=== PATIENT | male | born 2000 | race Caucasian/White ===

== ENCOUNTER 2022-11-15 23:10 | Emergency (ER) | payer BC, OTHER ==
[~2022-11-15] VITALS: Ht 195.6 cm; Wt 110.5 kg
[2022-11-15] MEDS ORDERED: HALOPERIDOL 5MG/ML 1ML VIAL As Ordered ONE (23:27)
[2022-11-15] MEDS ORDERED: diphenhydrAMINE 50MG/ML VIAL As Ordered ONE (23:27)
[2022-11-15] MEDS ORDERED: LORazepam 2 MG/ML 1ML VIAL As Ordered ONE (23:28)
[2022-11-15] MEDS ORDERED: HALOPERIDOL 5MG/ML 1ML VIAL IM STA (23:34)
[2022-11-15] MEDS ORDERED: diphenhydrAMINE 50MG/ML VIAL IM STA (23:34)
[2022-11-15] MEDS ORDERED: LORazepam 2 MG/ML 1ML VIAL IM STA (23:34)
[2022-11-16 00:40] LABS: HEMATOCRIT 41.4 % (42.0-52.0); HEMOGLOBIN 14.2 g/dl (13.5-17.5); MEAN CORPUSCULAR HEMOGLOBIN 30.5 pg (27.0-33.0); MEAN CORPUSCULAR HGB CONC 34.3 g/dl (32.0-36.5); PLATELET COUNT, AUTOMATED 230 10^3/uL (150-450); RED BLOOD COUNT 4.65 10^6/uL (4.30-6.10); WHITE BLOOD COUNT 7.7 10^3/uL (4.0-10.0)
[2022-11-16 01:08] LABS: ETHYL ALCOHOL (ETHANOL) 0.006 % (0.000-0.010)
[2022-11-16 01:09] LABS: ACETAMINOPHEN LEVEL < 2.0 UG/ML (10.0-20.0)
[2022-11-16 01:10] LABS: SALICYLATE LEVEL < 3.0 MG/DL (<30)
[2022-11-16 01:12] LABS: THYROID STIMULATING HORMONE 1.483 uIU/ML (0.55-4.78)
[2022-11-16 01:13] LABS: ALBUMIN 4.4 G/DL (3.2-5.2); ALKALINE PHOSPHATASE 87 U/L (46-116); ALT/SGPT 15 U/L (7.0-40); AST/SGOT 16 U/L (<34); BILIRUBIN,DIRECT 0.1 MG/DL (<0.4); BILIRUBIN,TOTAL 0.4 MG/DL (0.3-1.2); BLOOD UREA NITROGEN 12 MG/DL (9-23); CALCIUM LEVEL 9.2 MG/DL (8.5-10.1); CARBON DIOXIDE LEVEL 27 MMOL/L (20-31); CHLORIDE LEVEL 107 MMOL/L (98-107); CREATININE FOR GFR 0.96 MG/DL (0.70-1.30); GLOMERULAR FILTRATION RATE > 60.0 (>60); GLUCOSE, FASTING 100 MG/DL (60-100); POTASSIUM SERUM 3.6 MMOL/L (3.5-5.1); SODIUM LEVEL 144 MMOL/L (136-145)
[2022-11-16] MEDS ORDERED: MED REC CURRENTLY UNOBTAINABLE XX SCH (05:45)
[2022-11-16 08:45] VITALS: TEMP 96.4
[2022-11-16] MEDS ORDERED: QUEtiapine FUMARATE 50MG TAB PO SCH (09:00)
[2022-11-16] MEDS ORDERED: MED REC IN PROGRESS XX SCH (09:40)
[2022-11-16] MEDS ORDERED: TRAZ-257 PO (09:45)
[2022-11-16] MEDS ORDERED: HYDR-3363 PO (09:45)
[2022-11-16] MEDS ORDERED: QUET50TA4 PO ×2 (09:45)
[2022-11-16] MEDS ORDERED: ZOLO100T PO (09:45)
[2022-11-16] MEDS ORDERED: HOME MED LIST COMPLETE! XX SCH (09:50)
[2022-11-16 10:29] LABS: AMPHETAMINES LEVEL URINE NEGATIVE (NEGATIVE); BARBITURATES URINE NEGATIVE (NEGATIVE); BENZODIAZEPINES URINE NEGATIVE (NEGATIVE); COCAINE METABOLITE URINE NEGATIVE (NEGATIVE); METHADONE URINE NEGATIVE (NEGATIVE); OPIATES URINE NEGATIVE (NEGATIVE); PHENCYCLIDINE URINE NEGATIVE (NEGATIVE)
[2022-11-16 10:32] LABS: CANNABINOIDS URINE POSITIVE (NEGATIVE)
[2022-11-16] MEDS ORDERED: QUEtiapine FUMARATE 50MG TAB PO PRN (10:35)
[2022-11-16 11:34] VITALS: BP 139/69; O2SAT 100
[2022-11-16] MEDS ORDERED: traZODone 100 MG TAB PO SCH (21:00)
[2022-11-16] MEDS ORDERED: SERTRALINE 100 MG TAB PO SCH (21:00)
== END 2022-11-16 11:53 | disposition home or self-care (01) ==
LOC: M ED 23:10
DX: F43.22 Adjustment disorder with anxiety (principal); F32.A Depression, unspecified; Z79.899 Other long term (current) drug therapy
CPT/HCPCS: 80048; 80076; 80143; 80307; 82077; 84443; 85027; 87635; 96372; 99284; J1200; J1630; J2060

== ENCOUNTER 2023-05-04 13:08 | Inpatient (IN) | payer OTHER ==
[~2023-05-04] VITALS: Ht 195.6 cm; Wt 129.6 kg
[~2023-05-04 13:08] MED LIST: HYDR-3363 PO; QUET50TA4 PO; TRAZ-257 PO; ZOLO100T PO
[2023-05-04] MEDS ORDERED: LORazepam 2 MG TAB PO STA (13:39)
[2023-05-04] MEDS ORDERED: OLANZapine ORAL DISINTEGRATING TAB 5MG PO ONE (13:40)
[2023-05-04 14:15] LABS: HEMATOCRIT 43.3 % (42.0-52.0); HEMOGLOBIN 14.7 g/dl (13.5-17.5); MEAN CORPUSCULAR HEMOGLOBIN 30.2 pg (27.0-33.0); MEAN CORPUSCULAR HGB CONC 33.9 g/dl (32.0-36.5); MEAN CORPUSCULAR VOLUME 88.9 fl (80.0-96.0); PLATELET COUNT, AUTOMATED 261 10^3/uL (150-450); RED BLOOD COUNT 4.87 10^6/uL (4.30-6.10); WHITE BLOOD COUNT 7.2 10^3/uL (4.0-10.0)
[2023-05-04 14:37] LABS: ETHYL ALCOHOL (ETHANOL) 0.007 % (0.000-0.010)
[2023-05-04 14:39] LABS: ALBUMIN 4.4 G/DL (3.2-5.2); ALKALINE PHOSPHATASE 66 U/L (46-116); ALT/SGPT 22 U/L (7.0-40); AST/SGOT 23 U/L (<34); BILIRUBIN,DIRECT 0.2 MG/DL (<0.4); BILIRUBIN,TOTAL 0.5 MG/DL (0.3-1.2); BLOOD UREA NITROGEN 11 MG/DL (9-23); CALCIUM LEVEL 9.4 MG/DL (8.5-10.1); CARBON DIOXIDE LEVEL 25 MMOL/L (20-31); CHLORIDE LEVEL 109 MMOL/L (98-107); GLOMERULAR FILTRATION RATE > 60.0 (>60); GLUCOSE, FASTING 87 MG/DL (60-100); POTASSIUM SERUM 4.3 MMOL/L (3.5-5.1); SALICYLATE LEVEL < 3.0 MG/DL (<30); SODIUM LEVEL 138 MMOL/L (136-145); TOTAL PROTEIN 7.5 G/DL (5.7-8.2)
[2023-05-04 14:41] LABS: THYROID STIMULATING HORMONE 0.693 uIU/ML (0.55-4.78)
[2023-05-04] MEDS ORDERED: QUEtiapine FUMARATE 50MG TAB PO PRN ×2 (15:20→15:55)
[2023-05-04 15:50] LABS: PHENCYCLIDINE URINE NEGATIVE (NEGATIVE)
[2023-05-04 15:51] LABS: AMPHETAMINES LEVEL URINE NEGATIVE (NEGATIVE); BARBITURATES URINE NEGATIVE (NEGATIVE); BENZODIAZEPINES URINE NEGATIVE (NEGATIVE); COCAINE METABOLITE URINE NEGATIVE (NEGATIVE); METHADONE URINE NEGATIVE (NEGATIVE); OPIATES URINE NEGATIVE (NEGATIVE)
[2023-05-04 15:52] LABS: CANNABINOIDS URINE POSITIVE (NEGATIVE)
[2023-05-04] MEDS ORDERED: OLANZapine ORAL DISINTEGRATING TAB 5MG PO PRN (15:55)
[2023-05-04] MEDS ORDERED: diphenhydrAMINE 25MG CAP PO PRN (15:55)
[2023-05-04] MEDS ORDERED: ACETAMINOPHEN TAB 650MG DOSE (2X325MG) PO PRN (15:55)
[2023-05-04] MEDS ORDERED: IBUPROFEN 400MG TAB PO PRN (15:55)
[2023-05-04] MEDS ORDERED: LORazepam 1 MG TAB PO PRN (15:55)
[2023-05-04] MEDS ORDERED: NICOTINE 21MG/24HR 1 EA TRANSDERMAL TD PRN (15:55)
[2023-05-04] MEDS ORDERED: MOM 30ML SUSPENSION UDC PO PRN (15:55)
[2023-05-04] MEDS ORDERED: MAALOX 30 ML SUSP *UDC PO PRN (15:55)
[2023-05-04] MEDS: traZODone 100 MG TAB PO SCH (21:00)
[2023-05-04] MEDS: QUEtiapine FUMARATE 50MG TAB PO SCH (21:00)
[2023-05-04] MEDS: SERTRALINE 100 MG TAB PO SCH (21:00)
[2023-05-04] MEDS ORDERED: QUEtiapine FUMARATE 50MG TAB PO SCH (21:00)
[2023-05-04] MEDS ORDERED: SERTRALINE 100 MG TAB PO SCH (21:00)
[2023-05-04] MEDS ORDERED: traZODone 100 MG TAB PO SCH (21:00)
[2023-05-04] MEDS ORDERED: VITA100093 PO (22:07)
[2023-05-04] MEDS ORDERED: TRAZ-252 PO (22:07)
[2023-05-04] MEDS ORDERED: HOME MED LIST COMPLETE! XX SCH (22:10)
[2023-05-05] MEDS: traZODone 100 MG TAB PO SCH ×2 (00:51→19:31)
[2023-05-05] MEDS: SERTRALINE 100 MG TAB PO SCH (00:51)
[2023-05-05] MEDS: QUEtiapine FUMARATE 50MG TAB PO SCH (00:51)
[2023-05-05] MEDS ORDERED: NICOTINE POLACRILEX 2 MG GUM PO ONE (06:00)
[2023-05-05] MEDS ORDERED: HALOPERIDOL 5MG/ML 1ML VIAL IM ONE (08:40)
[2023-05-05] MEDS ORDERED: LORazepam 2 MG/ML 1ML VIAL IM ONE (08:40)
[2023-05-05] MEDS ORDERED: diphenhydrAMINE 50MG/ML VIAL IM ONE (08:40)
[2023-05-05] MEDS ORDERED: IBUPROFEN 400MG TAB PO PRN (10:20)
[2023-05-05] MEDS ORDERED: MOM 30ML SUSPENSION UDC PO PRN (10:20)
[2023-05-05] MEDS ORDERED: ACETAMINOPHEN TAB 650MG DOSE (2X325MG) PO PRN (10:20)
[2023-05-05] MEDS ORDERED: MAALOX 30 ML SUSP *UDC PO PRN (10:20)
[2023-05-05] MEDS: NICOTINE 21MG/24HR 1 EA TRANSDERMAL TD SCH (11:01)
[2023-05-05 14:05] VITALS: BP 147/87; TEMP 97.7; O2SAT 96
[2023-05-05] MEDS: diphenhydrAMINE 25MG CAP PO PRN ×2 (15:42→19:31)
[2023-05-05] MEDS: LORazepam 1 MG TAB PO PRN ×2 (15:42→19:31)
[2023-05-05] MEDS ORDERED: DIVALPROEX 250MG *ER* TAB PO ONE (18:30)
[2023-05-05] MEDS: traZODone 50 MG TAB PO PRN (19:30)
[2023-05-05] MEDS: QUEtiapine FUMARATE 100 MG TAB PO SCH (19:30)
[2023-05-05] MEDS: SERTRALINE HCL 50 MG TAB PO SCH (19:31)
[2023-05-06] MEDS: LORazepam 1 MG TAB PO PRN (04:02)
[2023-05-06] MEDS: QUEtiapine FUMARATE 100 MG TAB PO SCH (08:23)
[2023-05-06] MEDS: NICOTINE 21MG/24HR 1 EA TRANSDERMAL TD SCH (08:23)
[2023-05-06] MEDS: VITAMIN D 1,000 INTERNATIONAL UNITS TABLET PO SCH (08:23)
[2023-05-06] MEDS: DIVALPROEX 250MG *ER* TAB PO SCH (09:18)
[2023-05-06] MEDS: OLANZapine 2.5MG TABLET PO SCH (09:18)
[2023-05-06] MEDS: QUEtiapine FUMARATE 200 MG TAB PO SCH (20:18)
[2023-05-06] MEDS: traZODone 100 MG TAB PO SCH (20:18)
[2023-05-06] MEDS: traZODone 50 MG TAB PO PRN (20:19)
[2023-05-06] MEDS: SERTRALINE HCL 50 MG TAB PO SCH (20:19)
[2023-05-07] MEDS: NICOTINE 21MG/24HR 1 EA TRANSDERMAL TD SCH (06:11)
[2023-05-07 07:00] VITALS: BP 158/84; TEMP 97.2; O2SAT 95
[2023-05-07 07:40] LABS: CHOLESTEROL RISK RATIO 5.3 (<5); HDL CHOLESTEROL 34.7 MG/DL (>40); LDL CHOLESTEROL 123.7 MG/DL (<100); NON-HDL-C 149.3 MG/DL
[2023-05-07] MEDS: VITAMIN D 1,000 INTERNATIONAL UNITS TABLET PO SCH (08:17)
[2023-05-07] MEDS: DIVALPROEX 250MG *ER* TAB PO SCH (08:17)
[2023-05-07] MEDS: OLANZapine 2.5MG TABLET PO SCH (08:17)
[2023-05-07] MEDS: PROPRANOLOL 20 MG TAB PO SCH ×3 (10:19→20:06)
[2023-05-07 16:04] VITALS: BP 137/87; TEMP 98; O2SAT 100
[2023-05-07] MEDS: SERTRALINE HCL 50 MG TAB PO SCH (20:05)
[2023-05-07] MEDS: traZODone 100 MG TAB PO SCH (20:06)
[2023-05-07] MEDS: QUEtiapine FUMARATE 200 MG TAB PO SCH (20:06)
[2023-05-08 06:55] VITALS: BP 144/76; TEMP 97.4; O2SAT 95
[2023-05-08] MEDS: NICOTINE 21MG/24HR 1 EA TRANSDERMAL TD SCH (08:04)
[2023-05-08 08:05] VITALS: BP 139/82
[2023-05-08] MEDS: PROPRANOLOL 20 MG TAB PO SCH (08:05)
[2023-05-08] MEDS: DIVALPROEX 250MG *ER* TAB PO SCH (08:05)
[2023-05-08] MEDS: VITAMIN D 1,000 INTERNATIONAL UNITS TABLET PO SCH (08:05)
[2023-05-08] MEDS ORDERED: OLANZapine 5 MG TAB PO SCH (09:00)
[2023-05-08] MEDS: diphenhydrAMINE 25MG CAP PO PRN (09:12)
[2023-05-08] MEDS ORDERED: QUET200T2 PO (10:53)
[2023-05-08] MEDS ORDERED: NICO21PAT TD (10:53)
[2023-05-08] MEDS ORDERED: TRAZ-252 PO (10:53)
[2023-05-08] MEDS ORDERED: PROP20TA PO (10:53)
[2023-05-08] MEDS ORDERED: ZOLO100T PO (10:53)
[2023-05-08] MEDS ORDERED: DEPA250T2 PO (10:53)
[2023-05-08] MEDS ORDERED: OLAN1TAB16 PO (10:53)
== END 2023-05-08 13:43 | disposition home or self-care (01) | DRG 882 ==
LOC: M ED 13:08 → M ED INP 15:53 → M PSY 05-05 14:07
PROVIDERS: ADMIT Student in an Organized Health Care Education/Training Program; ATTEND Student in an Organized Health Care Education/Training Program
DX: F43.20 Adjustment disorder, unspecified (principal); R45.851 Suicidal ideations; F12.90 Cannabis use, unspecified, uncomplicated; F60.3 Borderline personality disorder; F43.10 Post-traumatic stress disorder, unspecified; F90.9 Attention-deficit hyperactivity disorder, unspecified type; F17.200 Nicotine dependence, unspecified, uncomplicated; Z91.51 Personal history of suicidal behavior; Z62.811 Personal history of psychological abuse in childhood; Z62.810 Personal history of physical and sexual abuse in childhood; Z79.899 Other long term (current) drug therapy; Z20.822 Contact with and (suspected) exposure to COVID-19; Z71.51 Drug abuse counseling and surveillance of drug abuser; S60.221A Contusion of right hand, initial encounter; W22.09XA Striking against other stationary object, initial encounter; Y92.230 Patient room in hospital as the place of occurrence of the external cause

== ENCOUNTER 2023-10-05 20:57 | Emergency (ER) | payer OTHER ==
[~2023-10-05] VITALS: Ht 188 cm; Wt 109.1 kg
[~2023-10-05 20:57] MED LIST changes: +DEPA250T2 PO; +NICO21PAT TD; +OLAN1TAB16 PO; +PROP20TA PO; +QUET200T2 PO; +TRAZ-252 PO; +VITA100093 PO
[2023-10-05] MEDS: HALOPERIDOL LACTATE 5MG/ML VIAL IM ONE (21:34)
[2023-10-05] MEDS: LORazepam 2 MG/ML 1ML VIAL IM ONE (21:34)
[2023-10-05] MEDS: diphenhydrAMINE 50MG/ML VIAL IM ONE (21:34)
[2023-10-05 21:38] LABS: HEMATOCRIT 44.2 % (42.0-52.0); HEMOGLOBIN 15.2 g/dl (13.5-17.5); MEAN CORPUSCULAR HEMOGLOBIN 30.8 pg (27.0-33.0); MEAN CORPUSCULAR HGB CONC 34.4 g/dl (32.0-36.5); MEAN CORPUSCULAR VOLUME 89.7 fl (80.0-96.0); PLATELET COUNT, AUTOMATED 268 10^3/uL (150-450); RED BLOOD COUNT 4.93 10^6/uL (4.30-6.10); WHITE BLOOD COUNT 9.4 10^3/uL (4.0-10.0)
[2023-10-05 22:04] LABS: ETHYL ALCOHOL (ETHANOL) < 0.003 % (0.000-0.010)
[2023-10-05 22:05] LABS: SALICYLATE LEVEL < 3.0 MG/DL (<30)
[2023-10-05 22:06] LABS: ALBUMIN 4.3 G/DL (3.2-5.2); ALKALINE PHOSPHATASE 75 U/L (46-116); ALT/SGPT 15 U/L (7.0-40); AST/SGOT 12 U/L (<34); BILIRUBIN,DIRECT 0.2 MG/DL (<0.4); BILIRUBIN,TOTAL 0.5 MG/DL (0.3-1.2); BLOOD UREA NITROGEN 15 MG/DL (9-23); CALCIUM LEVEL 9.8 MG/DL (8.5-10.1); CARBON DIOXIDE LEVEL 25 MMOL/L (20-31); CHLORIDE LEVEL 109 MMOL/L (98-107); CREATININE FOR GFR 1.14 MG/DL (0.70-1.30); GLOMERULAR FILTRATION RATE > 60.0 (>60); GLUCOSE, FASTING 85 MG/DL (60-100); POTASSIUM SERUM 4.3 MMOL/L (3.5-5.1); SODIUM LEVEL 140 MMOL/L (136-145); TOTAL PROTEIN 7.6 G/DL (5.7-8.2)
[2023-10-05 22:08] LABS: THYROID STIMULATING HORMONE 0.751 uIU/ML (0.55-4.78)
[2023-10-05 22:14] LABS: AMPHETAMINES LEVEL URINE NEGATIVE (NEGATIVE); BARBITURATES URINE NEGATIVE (NEGATIVE); BENZODIAZEPINES URINE NEGATIVE (NEGATIVE); COCAINE METABOLITE URINE NEGATIVE (NEGATIVE); METHADONE URINE NEGATIVE (NEGATIVE); OPIATES URINE NEGATIVE (NEGATIVE); PHENCYCLIDINE URINE NEGATIVE (NEGATIVE)
[2023-10-05 22:16] LABS: CANNABINOIDS URINE POSITIVE (NEGATIVE)
[2023-10-06] MEDS ORDERED: QUET100T2 PO (06:25)
[2023-10-06] MEDS ORDERED: HOME MED LIST COMPLETE! XX SCH (06:25)
[2023-10-06] MEDS ORDERED: DIVA250T7 PO (06:25)
[2023-10-06] MEDS ORDERED: DICL100G10 TOP (06:25)
[2023-10-06] MEDS ORDERED: TRAZ-186 PO (06:25)
[2023-10-06] MEDS ORDERED: PROP20TA72 PO (06:25)
[2023-10-06] MEDS: NICOTINE 21MG/24HR 1 EA TRANSDERMAL TD ONE (08:04)
[2023-10-06 09:36] VITALS: BP 122/68; TEMP 98.6; O2SAT 98
== END 2023-10-06 09:45 | disposition home or self-care (01) ==
LOC: M ED 20:57
DX: F43.20 Adjustment disorder, unspecified (principal); F19.10 Other psychoactive substance abuse, uncomplicated; F60.3 Borderline personality disorder; F32.A Depression, unspecified; F64.0 Transsexualism
CPT/HCPCS: 80048; 80076; 80143; 80307; 82077; 84443; 85027; 96372; 99285; J1200; J1630; J2060